=== PATIENT | female | born 1995 | race Caucasian/White ===

== ENCOUNTER 2017-05-16 11:06 | Emergency (ER) | payer OTHER ==
[~2017-05-16] VITALS: Ht 160 cm; Wt 83.9 kg
[2017-05-16] MEDS ORDERED: NORCO 10-325 T1 EACH PO (12:15)
[2017-05-16] MEDS ORDERED: CLEOCIN HCL300 MG PO (12:15)
[2017-05-20] MEDS ORDERED: NORCO 7.5-3251 EACH PO (13:09)
[2017-05-20] MEDS ORDERED: BACTRIM DS TAB1 EACH PO (13:09)
== END 2017-05-16 12:33 | disposition home or self-care (01) ==
LOC: ED 11:06
DX: L02.31 Cutaneous abscess of buttock (principal)
CPT/HCPCS: 99283

== ENCOUNTER 2017-11-02 17:49 | Emergency (ER) | payer OTHER ==
[~2017-11-02] VITALS: Ht 160 cm; Wt 74.8 kg
[~2017-11-02 17:49] MED LIST: BACTRIM DS TAB1 EACH PO; CLEOCIN HCL300 MG PO; NORCO 10-325 T1 EACH PO; NORCO 7.5-3251 EACH PO
[2017-11-02] MEDS ORDERED: SUMATRIPTAN SUC50 MG PO (18:49)
[2017-11-02] MEDS ORDERED: ONDANSETRON ODT8 MG PO (18:49)
== END 2017-11-02 19:10 | disposition home or self-care (01) ==
LOC: ED 17:49
DX: G43.909 Migraine, unspecified, not intractable, without status migrainosus (principal)
CPT/HCPCS: 96372; 99283; J3030

== ENCOUNTER 2018-06-11 22:00 | Emergency (ER) | payer OTHER ==
[~2018-06-11] VITALS: Ht 160 cm; Wt 79.4 kg
[~2018-06-11 22:00] MED LIST changes: +ONDANSETRON ODT8 MG PO; +SUMATRIPTAN SUC50 MG PO
== END 2018-06-12 00:41 | disposition home or self-care (01) ==
LOC: ED 22:00
DX: S16.1XXA Strain of muscle, fascia and tendon at neck level, initial encounter (principal); S70.01XA Contusion of right hip, initial encounter; S00.83XA Contusion of other part of head, initial encounter; S00.511A Abrasion of lip, initial encounter; F17.200 Nicotine dependence, unspecified, uncomplicated; Y04.0XXA Assault by unarmed brawl or fight, initial encounter
CPT/HCPCS: 70450; 70486; 72125; 99284-25

== ENCOUNTER 2020-02-23 19:26 | Emergency (ER) | payer OTHER ==
[~2020-02-23] VITALS: Ht 160 cm; Wt 88.5 kg
[2020-02-23] MEDS ORDERED: ONDANSETRON ODT4 MG PO (22:16)
--- NOTE | 2020-02-24 06:58 | EKG ---
[facility] [address] [facility] [place], [place] [address] Signed Sinus rhythm with marked sinus arrhythmia Otherwise normal ECG No previous ECGs available Confirmed by BELLA BRUSH MD ([id number]) on 02/24/2020 6:58:08 AM Electronically Signed By: BELLA BRUSH MD 02/24/20 0658 PATIENT NAME: MONICA PERRIN LIAM Electrocardiogram DATE OF : [birth year] PHYSICIAN: BELLA BRUSH MD REPORT #: [id number] REPORT IS CONFIDENTIAL AND NOT TO BE RELEASED WITHOUT AUTHORIZATION
== END 2020-02-23 23:27 | disposition home or self-care (01) ==
LOC: ED 19:26
DX: R07.9 Chest pain, unspecified (principal); R06.00 Dyspnea, unspecified; R11.2 Nausea with vomiting, unspecified
CPT/HCPCS: 71045; 80053; 81001; 83735; 84484; 84703; 85025; 93005; 93010; 96374; 96375; 99285-25; J1885; J2405; J7121

== ENCOUNTER 2021-11-04 09:09 | Emergency (ER) | payer OTHER ==
[~2021-11-04] VITALS: Ht 160 cm; Wt 79.4 kg
[~2021-11-04 09:09] MED LIST changes: +ONDANSETRON ODT4 MG PO
[2021-11-04] MEDS ORDERED: ONDANSETRON ODT8 MG PO (16:22)
== END 2021-11-04 16:38 | disposition home or self-care (01) ==
LOC: ED 09:09
DX: K52.9 Noninfective gastroenteritis and colitis, unspecified (principal)
CPT/HCPCS: 36415; 74177; 80053; 81001; 83690; 84703; 85025; 96361; 96376; 99284-25; J2405; J7030; Q9967

== ENCOUNTER 2022-01-13 07:23 | Emergency (ER) | payer OTHER ==
[~2022-01-13] VITALS: Ht 160 cm; Wt 79.9 kg
== END 2022-01-13 10:59 | disposition home or self-care (01) ==
LOC: ED 07:23
DX: M54.9 Dorsalgia, unspecified (principal); R10.9 Unspecified abdominal pain
CPT/HCPCS: 36415; 80053; 81003; 83690; 84703; 85025; 99284; A9270

== ENCOUNTER 2022-09-02 20:38 | Emergency (ER) | payer OTHER ==
[~2022-09-02] VITALS: Ht 160 cm; Wt 74.5 kg
--- OUTSIDE RECORDS SUMMARY | ~2022-09-02 | XMS | Continuity of Care Document ---
Demographics + + + | Address | [address] | | | [place] [address] | + + + | Preferred Language | Unknown | + + + | Marital Status | Never | + + + | Lutheran Affiliation | Unknown | + + + | Race | White | + + + | Ethnic Group | Not or | + + + Author + + + | Author | [facility] | + + + | Organization | [facility] | + + + | Address | [address] | | | [place] [address] | + + + | Phone | | + + + Care Team Providers + + + + | Care Table Saw Operator Name | Role | Phone | + + + + Unavailable | Unavailable | + + + + Unavailable | Unavailable | + + + + Unavailable | Unavailable | + + + + Allergies and Intolerances + + + + + + | date | description | facility | reaction | severity | + + + + + + | (no date) | Rash | [facility] | (no reaction) | (no severity) [facility] | | | + + + + + + | (no date) | Penicillin | [facility] | (no reaction) | (no severity) | [facility] | | | + + + + + + | (no date) | Penicillin | [facility] | (no reaction) | (no severity) | [facility] | | | + + + + + + | (no date) | No Known Drug | [facility] | (no reaction) | (no severity) | | | Allergies | | | | + + + + + + | (no date) | Penicillin | [facility] | (no reaction[facility] | (no severity) | [facility] | | | + + + + + + | (no date) | Penicillin | [facility] | (no reaction) | (no severity) | [facility] | | | + + + + + + Encounters No information. Functional Status No information. Immunizations No information. Medications + + + + | date | description | facility | + + + + | 2022-08-13 00:00 | METOCLOPRAMIDE HCL | [facility] | + + + + | 2017-11-02 00:00 | ONDANSETRON | [facility] | + + + + | 2021-11-04 00:00 | ONDANSETRON | [facility] | + + + + | 2017-11-02 00:00 | SUMATRIPTAN SUCCINATE | [facility] | + + + + | 2022-07-30 00:00 | AMOXICILLIN/POTASSIUM CLAV | [facility] | | | | | + + + + | 2022-08-13 00:00 | AMOXICILLIN/POTASSIUM CLAV | [facility] | | | | | + + + + | 2017-05-16 00:00 | CLINDAMYCIN HCL | [facility] | + + + + | 2022-07-30 00:00 | CLINDAMYCIN HCL | [facility] | + + + + | 2017-05-20 00:00 | | [facility] | | | SULFAMETHOXAZOLE/TRIMETHOPR | | | | IM DS | | + + + + | 2017-05-16 00:00 | HYDROCODONE/APAP | [facility] | | | (10-325MG) | | + + + + | 2017-05-20 00:00 | HYDROCODONE | [facility] | | | BIT/ACETAMINOPHEN | | + + + + | 2022-08-13 00:00 | PROMETHAZINE HCL | [facility] | + + + + Problems + + + + | date | description | facility | + + + + | 2017-05-16 00:00 | Abscess | [facility] | + + + + | 2017-05-16 00:00 | Abscess | [facility] | + + + + | 2018-06-12 00:00 | Contusion of face | [facility] | + + + + | 2018-06-12 00:00 | Contusion of face | [facility] | + + + + | 2018-06-12 00:00 | Strain of neck muscle | [facility] | + + + + | 2018-06-12 00:00 | Strain of neck muscle | [facility] | + + + + | 2018-06-12 00:00 | Contusion of right hip | [facility] | + + + + | 2018-06-12 00:00 | Contusion of right hip | [facility] | + + + + | 2020-02-23 00:00 | Dyspnea | [facility] | + + + + | 2020-02-23 00:00 | Dyspnea | [facility] | + + + + | 2020-02-23 00:00 | Chest pain | [facility] | + + + + | 2020-02-23 00:00 | Chest pain | [facility] | + + + + | 2020-02-23 00:00 | Vomiting | [facility] | + + + + | 2020-02-23 00:00 | Vomiting | [facility] | + + + + | 2021-05-09 00:00 | Patient left without being | [facility] | | | seen | | + + + + | 2021-05-09 00:00 | Patient left without being | [facility] | | | seen | | + + + + | 2021-11-04 00:00 | Gastroenteritis | [facility] | + + + + | 2021-11-04 00:00 | Gastroenteritis | [facility] | + + + + | 2022-01-13 00:00 | Musculoskeletal back pain | [facility] | + + + + | 2022-01-13 00:00 | Musculoskeletal back pain | [facility] | + + + + | 2022-07-30 00:00 | Allergic reaction due to | [facility] | | | antibacterial drug | | + + + + | 2022-07-30 06:28 | GEN SKIN ERUPTION DUE TO | [facility] | | | DRUGS AND MEDS TAKEN INTE | | + + + + | 2022-07-30 06:28 | Rash and other nonspecific | [facility] | | | skin eruption | | + + + + | 2022-07-30 06:28 | ADVERSE EFFECT OF | [facility] | | | PENICILLINS, INITIAL | | | | ENCOUNTER | | + + + + | 2022-07-30 06:28 | ADVERSE EFFECT OF | [facility] | | | CEPHALOSPOR/OTH BETA-LACTM | | | | ANTIB | | + + + + | 2022-08-13 00:00 | | [facility] | + + + + | 2022-08-13 10:00 | MILD HYPEREMESIS | [facility] | | | GRAVIDARUM | | + + + + | 2022-08-13 10:00 | NAUSEA WITH VOMITING, | [facility] | | | UNSPECIFIED | | + + + + | 2022-08-13 10:00 | LESS THAN 8 WEEKS | [facility] | | | GESTATION OF | | + + + + | 2022-08-13 10:00 | OTHER MANAGER POST (CURRENT) | [facility] | | | DRUG THERAPY | | + + + + | 2022-08-13 10:00 | ALLERGY STATUS TO | [facility] | | | PENICILLIN | | + + + + Procedures No information. Results/Labs +--------+--------+ +---------+--------+---------+ | test | date | facility | value | unit | notes | +--------+--------+ +---------+--------+---------+ + + | Result panel 1 | + + + + + + + + + | | 2021-11-04 | [facility] | YELLOW | (missing) | (missing) | | (unavailable | 10:59 [facility] | | | + + + + + + + + + | Result panel 2 | + + + + + +---------+ + + | | 2021-11-04 | [facility] | CLEAR | (missing) | (missing) | | (unavailable | 10:59 [facility] | | | | + + + +---------+ + + + + | Result panel 3 | + + + + + + + + + | | 2021-11-04 | [facility] | NEGATIVE | (missing) | (missing) | | (unavailable | 10:59 [facility] | | | + + + + + + + + + | Result panel 4 | + + + + + + + + + | | 2021-11-04 | [facility] | NEGATIVE | (missing) | (missing) | | (unavailable | 10:59 [facility] | | | + + + + + + + + + | Result panel 5 | + + + + + + + + + | | 2021-11-04 | [facility] | NEGATIVE | (missing) | (missing) | | (unavailable | 10:59 [facility] | | | + + + + + + + + + | Result panel 6 | + + + + + +---------+ + + | | 2021-11-04 | [facility] | 1.020 | (missing) | (missing) | | (unavailable | 10:59 [facility] | | | + + + +---------+ + + + + | Result panel 7 | + + + + + + + + + | | 2021-11-04 | [facility] | NEGATIVE | (missing) | (missing) | | (unavailable | 10:59 [facility] | | | + + + + + + + + + | Result panel 8 | + + + + + +-------+ + + | | 2021-11-04 | [facility] | 8.0 | (missing) | (missing) | | (unavailable | 10:59 [facility] | | | + + + +-------+ + + + + | Result panel 9 | + + + + + + + + + | | 2021-11-04 | [facility] | NEGATIVE | (missing) | (missing) | | (unavailable | 10:59 [facility] | | | + + + + + + + + + | Result panel 10 | + + + + + + + + + | | 2021-11-04 | [facility] | NORMAL | (missing) | (missing) | | (unavailable | 10:59 [facility] | | | + + + + + + + + + | Result panel 11 | + + + + + + + + + | | 2021-11-04 | [facility] | NEGATIVE | (missing) | (missing) | | (unavailable | 10:59 [facility] | | | + + + + + + + + + | Result panel 12 | + + + + + + + + + | | 2021-11-04 | [facility] | NEGATIVE | (missing) | (missing) | | (unavailable | 10:59 [facility] | | | + + + + + + + + + | Result panel 13 | + + + + + + + + + | | 2021-11-04 | [facility] | CLEAN CATCH | (missing) | (missing) | | (unavailable | 10:59 [facility] | | | + + + + + + + + + | Result panel 14 | + + + + + +--------+ + + | | 2021-11-04 | [facility] | 13.2 | (missing) | (missing) | | (unavailable | 11:15 [facility] | | | + + + +--------+ + + + + | Result panel 15 | + + + + + +--------+ + + | | 2021-11-04 | [facility] | 5.27 | (missing) | (missing) | | (unavailable | 11:15 [facility] | | | + + + +--------+ + + + + | Result panel 16 | + + + + + +--------+ + + | | 2021-11-04 | [facility] | 15.9 | (missing) | (missing) | | (unavailable | 11:15 [facility] | | | + + + +--------+ + + + + | Result panel 17 | + + + + + +--------+ + + | | 2021-11-04 | [facility] | 48.5 | (missing) | (missing) | | (unavailable | 11:15 [facility] | | | + + + +--------+ + + + + | Result panel 18 | + + + + + +--------+ + + | | 2021-11-04 | [facility] | 91.9 | (missing) | (missing) | | (unavailable | 11:15 [facility] | | | + + + +--------+ + + + + | Result panel 19 | + + + + + +--------+ + + | | 2021-11-04 | [facility] | 30.2 | (missing) | (missing) | | (unavailable | 11:15 [facility] | | | + + + +--------+ + + + + | Result panel 20 | + + + + + +--------+ + + | | 2021-11-04 | [facility] | 32.8 | (missing) | (missing) | | (unavailable | 11:15 [facility] | | | + + + +--------+ + + + + | Result panel 21 | + + + + + +--------+ + + | | 2021-11-04 | [facility] | 13.1 | (missing) | (missing) | | (unavailable | 11:15 [facility] | | | + + + +--------+ + + + + | Result panel 22 | + + + + + +-------+ + + | | 2021-11-04 | [facility] | 177 | (missing) | (missing) | | (unavailable | 11:15 [facility] | | | + + + +-------+ + + + + | Result panel 23 | + + + + + +--------+ + + | | 2021-11-04 | [facility] | 91.4 | (missing) | (missing) | | (unavailable | 11:15 [facility] | | | + + + +--------+ + + + + | Result panel 24 | + + + + + +-------+ + + | | 2021-11-04 | [facility] | 4.7 | (missing) | (missing) | | (unavailable | 11:15 [facility] | | | + + + +-------+ + + + + | Result panel 25 | + + + + + +-------+ + + | | 2021-11-04 | [facility] | 3.2 | (missing) | (missing) | | (unavailable | 11:15 [facility] | | | + + + +-------+ + + + + | Result panel 26 | + + + + + +-------+ + + | | 2021-11-04 | [facility] | 0.5 | (missing) | (missing) | | (unavailable | 11:15 [facility] | | | + + + +-------+ + + + + | Result panel 27 | + + + + + +-------+ + + | | 2021-11-04 | [facility] | 0.2 | (missing) | (missing) | | (unavailable | 11:15 [facility] | | | + + + +-------+ + + + + | Result panel 28 | + + + + + +-------+---------+ + | | 2021-11-04 | [facility] | 102 | mg/dL | (missing) | | (unavailable | 11:15 [facility] | | | + + + +-------+---------+ + + + | Result panel 29 | + + + + + +------+---------+ + | | 2021-11-04 | [facility] | 10 | mg/dL | (missing) | | (unavailable | 11:15 [facility] | | | + + + +------+---------+ + + + | Result panel 30 | + + + + + +--------+---------+ + | | 2021-11-04 | [facility] | 0.75 | mg/dL | (missing) | | (unavailable | 11:15 [facility] | | | + + + +--------+---------+ + + + | Result panel 31 | + + + + + +-------+ + + | | 2021-11-04 | [facility] | 113 | (missing) | (missing) | | (unavailable | 11:15 [facility] | | | + + + +-------+ + + + + | Result panel 32 | + + + + + +---------+ + + | | 2021-11-04 | [facility] | 13.33 | (missing) | (missing) | | (unavailable | 11:15 [facility] | | | + + + +---------+ + + + + | Result panel 33 | + + + + + +-------+ + + | | 2021-11-04 | [facility] | 136 | (missing) | (missing) | | (unavailable | 11:15 [facility] | | | + + + +-------+ + + + + | Result panel 34 | + + + + + +-------+ + + | | 2021-11-04 | [facility] | 3.6 | (missing) | (missing) | | (unavailable | 11:15 [facility] | | | + + + +-------+ + + + + | Result panel 35 | + + + + + +-------+ + + | | 2021-11-04 | [facility] | 102 | (missing) | (missing) | | (unavailable | 11:15 [facility] | | | + + + +-------+ + + + + | Result panel 36 | + + + + + +------+ + + | | 2021-11-04 | [facility] | 27 | (missing) | (missing) | | (unavailable | 11:15 [facility] | | | + + + +------+ + + + + | Result panel 37 | + + + + + +--------+ + + | | 2021-11-04 | [facility] | 10.6 | (missing) | (missing) | | (unavailable | 11:15 [facility] | | | + + + +--------+ + + + + | Result panel 38 | + + + + + +-------+---------+ + | | 2021-11-04 | [facility] | 8.6 | mg/dL | (missing) | | (unavailable | 11:15 [facility] | | | + + + +-------+---------+ + + + | Result panel 39 | + + + + + +-------+ + + | | 2021-11-04 | [facility] | 7.6 | (missing) | (missing) | | (unavailable | 11:15 [facility] | | | + + + +-------+ + + + + | Result panel 40 | + + + + + +-------+ + + | | 2021-11-04 | [facility] | 3.8 | (missing) | (missing) | | (unavailable | 11:15 [facility] | | | + + + +-------+ + + + + | Result panel 41 | + + + + + +-------+ + + | | 2021-11-04 | [facility] | 3.8 | (missing) | (missing) | | (unavailable | 11:15 [facility] | | | + + + +-------+ + + + + | Result panel 42 | + + + + + +--------+ + + | | 2021-11-04 | [facility] | 1.00 | (missing) | (missing) | | (unavailable | 11:15 [facility] | | | + + + +--------+ + + + + | Result panel 43 | + + + + + +-------+ + + | | 2021-11-04 | [facility] | 1.5 | (missing) | (missing) | | (unavailable | 11:15 [facility] | | | | + + + +-------+ + + + + | Result panel 44 | + + + + + +------+ + + | | 2021-11-04 | [facility] | 11 | (missing) | (missing) | | (unavailable | 11:15 [facility] | | | + + + +------+ + + + + | Result panel 45 | + + + + + +------+ + + | | 2021-11-04 | [facility] | 15 | (missing) | (missing) | | (unavailable | 11:15 [facility] | | | + + + +------+ + + + + | Result panel 46 | + + + + + +------+ + + | | 2021-11-04 | [facility] | 53 | (missing) | (missing) | | (unavailable | 11:15 [facility] | | | + + + +------+ + + + + | Result panel 47 | + + + + + +------+ + + | | 2021-11-04 | [facility] | 87 | (missing) | (missing) | | (unavailable | 11:15 [facility] | | | + + + +------+ + + + + | Result panel 48 | + + + + + + + + + | | 2021-11-04 | [facility] | NEGATIVE | (missing) | (missing) | | (unavailable | 11:15 [facility] | | | + + + + + + + + + | Result panel 49 | + + + + + + + + + | | 2022-01-13 | [facility] | YELLOW | (missing) | (missing) | | (unavailable | 07:30 [facility] | | | + + + + + + + + + | Result panel 50 | + + + + + +---------+ + + | | 2022-01-13 | [facility] | CLEAR | (missing) | (missing) | | (unavailable | 07:30 [facility] | | | + + + +---------+ + + + + | Result panel 51 | + + + + + + + + + | | 2022-01-13 | [facility] | NEGATIVE | (missing) | (missing) | | (unavailable | 07:30 [facility] | | | + + + + + + + + + | Result panel 52 | + + + + + + + + + | | 2022-01-13 | [facility] | NEGATIVE | (missing) | (missing) | | (unavailable | 07:30 [facility] | | | + + + + + + + + + | Result panel 53 | + + + + + + + + + | | 2022-01-13 | [facility] | NEGATIVE | (missing) | (missing) | | (unavailable | 07:30 [facility] | | | + + + + + + + + + | Result panel 54 | + + + + + +---------+ + + | | 2022-01-13 | [facility] | 1.020 | (missing) | (missing) | | (unavailable | 07:30 [facility] | | | + + + +---------+ + + + + | Result panel 55 | + + + + + + + + + | | 2022-01-13 | [facility] | NEGATIVE | (missing) | (missing) | | (unavailable | 07:30 [facility] | | | + + + + + + + + + | Result panel 56 | + + + + + +-------+ + + | | 2022-01-13 | [facility] | 7.0 | (missing) | (missing) | | (unavailable | 07:30 [facility] | | | + + + +-------+ + + + + | Result panel 57 | + + + + + + + + + | | 2022-01-13 | [facility] | NEGATIVE | (missing) | (missing) | | (unavailable | 07:30 [facility] | | | + + + + + + + + + | Result panel 58 | + + + + + + + + + | | 2022-01-13 | [facility] | NORMAL | (missing) | (missing) | | (unavailable | 07:30 [facility] | | | + + + + + + + + + | Result panel 59 | + + + + + + + + + | | 2022-01-13 | [facility] | NEGATIVE | (missing) | (missing) | | (unavailable | 07:30 [facility] | | | + + + + + + + + + | Result panel 60 | + + + + + + + + + | | 2022-01-13 | [facility] | NEGATIVE | (missing) | (missing) | | (unavailable | 07:30 [facility] | | | + + + + + + + + + | Result panel 61 | + + + + + + + + + | | 2022-01-13 | [facility] | NEGATIVE | (missing) | (missing) | | (unavailable | 07:30 [facility] | | | + + + + + + + + + | Result panel 62 | + + + + + +--------+ + + | | 2022-01-13 | [facility] | 90.5 | (missing) | (missing) | | (unavailable | 07:38 [facility] | | | + + + +--------+ + + + + | Result panel 63 | + + + + + +--------+ + + | | 2022-01-13 | [facility] | 30.3 | (missing) | (missing) | | (unavailable | 07:38 [facility] | | | + + + +--------+ + + + + | Result panel 64 | + + + + + +--------+ + + | | 2022-01-13 | [facility] | 33.5 | (missing) | (missing) | | (unavailable | 07:38 [facility] | | | + + + +--------+ + + + + | Result panel 65 | + + + + + +--------+ + + | | 2022-01-13 | [facility] | 12.9 | (missing) | (missing) | | (unavailable | 07:38 [facility] | | | + + + +--------+ + + + + | Result panel 66 | + + + + + +-------+ + + | | 2022-01-13 | [facility] | 198 | (missing) | (missing) | | (unavailable | 07:38 [facility] | | | + + + +-------+ + + + + | Result panel 67 | + + + + + +--------+ + + | | 2022-01-13 | [facility] | 72.3 | (missing) | (missing) | | (unavailable | 07:38 [facility] | | | + + + +--------+ + + + + | Result panel 68 | + + + + + +--------+ + + | | 2022-01-13 | [facility] | 19.3 | (missing) | (missing) | | (unavailable | 07:38 [facility] | | | + + + +--------+ + + + + | Result panel 69 | + + + + + +-------+ + + | | 2022-01-13 | [facility] | 4.6 | (missing) | (missing) | | (unavailable | 07:38 [facility] | | | + + + +-------+ + + + + | Result panel 70 | + + + + + +-------+ + + | | 2022-01-13 | [facility] | 3.4 | (missing) | (missing) | | (unavailable | 07:38 [facility] | | | + + + +-------+ + + + + | Result panel 71 | + + + + + +-------+ + + | | 2022-01-13 | [facility] | 0.4 | (missing) | (missing) | | (unavailable | 07:38 [facility] | | | + + + +-------+ + + + + | Result panel 72 | + + + + + +------+---------+ + | | 2022-01-13 | [facility] | 95 | mg/dL | (missing) | | (unavailable | 07:38 [facility] | | | + + + +------+---------+ + + + | Result panel 73 | + + + + + +------+---------+ + | | 2022-01-13 | [facility] | 14 | mg/dL | (missing) | | (unavailable | 07:38 [facility] | | | + + + +------+---------+ + + + | Result panel 74 | + + + + + +--------+---------+ + | | 2022-01-13 | [facility] | 0.82 | mg/dL | (missing) | | (unavailable | 07:38 [facility] | | | + + + +--------+---------+ + + + | Result panel 75 | + + + + + +-------+ + + | | 2022-01-13 | [facility] | 101 | (missing) | (missing) | | (unavailable | 07:38 [facility] | | | + + + +-------+ + + + + | Result panel 76 | + + + + + +---------+ + + | | 2022-01-13 | [facility] | 17.07 | (missing) | (missing) | | (unavailable | 07:38 [facility] | | | + + + +---------+ + + + + | Result panel 77 | + + + + + +-------+ + + | | 2022-01-13 | [facility] | 136 | (missing) | (missing) | | (unavailable | 07:38 [facility] | | | + + + +-------+ + + + + | Result panel 78 | + + + + + +-------+ + + | | 2022-01-13 | [facility] | 4.0 | (missing) | (missing) | | (unavailable | 07:38 [facility] | | | + + + +-------+ + + + + | Result panel 79 | + + + + + +-------+ + + | | 2022-01-13 | [facility] | 104 | (missing) | (missing) | | (unavailable | 07:38 [facility] | | | + + + +-------+ + + + + | Result panel 80 | + + + + + +------+ + + | | 2022-01-13 | [facility] | 25 | (missing) | (missing) | | (unavailable | 07:38 [facility] | | | + + + +------+ + + + + | Result panel 81 | + + + + + +--------+ + + | | 2022-01-13 | [facility] | 11.0 | (missing) | (missing) | | (unavailable | 07:38 [facility] | | | + + + +--------+ + + + + | Result panel 82 | + + + + + +-------+---------+ + | | 2022-01-13 | [facility] | 8.8 | mg/dL | (missing) | | (unavailable | 07:38 [facility] | | | + + + +-------+---------+ + + + | Result panel 83 | + + + + + +-------+ + + | | 2022-01-13 | [facility] | 7.3 | (missing) | (missing) | | (unavailable | 07:38 [facility] | | | + + + +-------+ + + + + | Result panel 84 | + + + + + +-------+ + + | | 2022-01-13 | [facility] | 3.6 | (missing) | (missing) | | (unavailable | 07:38 [facility] | | | + + + +-------+ + + + + | Result panel 85 | + + + + + +-------+ + + | | 2022-01-13 | [facility] | 3.7 | (missing) | (missing) | | (unavailable | 07:38 [facility] | | | + + + +-------+ + + + + | Result panel 86 | + + + + + +--------+ + + | | 2022-01-13 | [facility] | 0.97 | (missing) | (missing) | | (unavailable | 07:38 [facility] | | | | + + + +--------+ + + + + | Result panel 87 | + + + + + +-------+ + + | | 2022-01-13 | [facility] | 0.4 | (missing) | (missing) | | (unavailable | 07:38 [facility] | | | | + + + +-------+ + + + + | Result panel 88 | + + + + + +-----+ + + | | 2022-01-13 | [facility] | 9 | (missing) | (missing) | | (unavailable | 07:38 [facility] | | | | + + + +-----+ + + + + | Result panel 89 | + + + + + +------+ + + | | 2022-01-13 | [facility] | 17 | (missing) | (missing) | | (unavailable | 07:38 [facility] | | | | + + + +------+ + + + + | Result panel 90 | + + + + + +------+ + + | | 2022-01-13 | [facility] | 54 | (missing) | (missing) | | (unavailable | 07:38 [facility] | | | | + + + +------+ + + + + | Result panel 91 | + + + + + +-------+ + + | | 2022-01-13 | [facility] | 130 | (missing) | (missing) | | (unavailable | 07:38 [facility] | | | | + + + +-------+ + + + + | Result panel 92 | + + + + + +-------+ + + | | 2022-01-13 | [facility] | 9.8 | (missing) | (missing) | | (unavailable | 07:38 [facility] | | | | + + + +-------+ + + + + | Result panel 93 | + + + + + +--------+ + + | | 2022-01-13 | [facility] | 5.02 | (missing) | (missing) | | (unavailable | 07:38 [facility] | | | | + + + +--------+ + + + + | Result panel 94 | + + + + + +--------+ + + | | 2022-01-13 | [facility] | 15.2 | (missing) | (missing) | | (unavailable | 07:38 [facility] | | | | + + + +--------+ + + + + | Result panel 95 | + + + + + +--------+ + + | | 2022-01-13 | [facility] | 45.5 | (missing) | (missing) | | (unavailable | 07:38 [facility] | | | | + + + +--------+ + + + + | Result panel 96 | + + + + + + + + + | | 2022-08-13 | [facility] | YELLOW | (missing) | (missing) | | (unavailable | 10:24:07 [facility] | | | | + + + + + + + + + | Result panel 97 | + + + + + +---------+ + + | | 2022-08-13 | [facility] | CLEAR | (missing) | (missing) | | (unavailable | 10:24:07 [facility] | | | | + + + +---------+ + + + + | Result panel 98 | + + + + + + + + + | | 2022-08-13 | [facility] | NEGATIVE | (missing) | (missing) | | (unavailable | 10:24:07 [facility] | | | | + + + + + + + + + | Result panel 99 | + + + + + + + + + | | 2022-08-13 | [facility] | NEGATIVE | (missing) | (missing) | | (unavailable | 10:24:07 [facility] | | | | + + + + + + + + + | Result panel 100 | + + + + + +---------+ + + | | 2022-08-13 | [facility] | SMALL | (missing) | (missing) | | (unavailable | 10:24:07 | [facility] | | | | | [facility] | | [facility] | | | | + + + +---------+ + + + + | Result panel 101 | + + + + + +---------+ + + | | 2022-08-13 | [facility] | 1.020 | (missing) | (missing) | | (unavailable | [facility] | | | + + + +---------+ + + + + | Result panel 102 | + + + + + + + + + | | 2022-08-13 | [facility] | NEGATIVE | (missing) | (missing) | | (unavailable | [facility] | | | | + + + + + + + + + | Result panel 103 | + + + + + +-------+ + + | | 2022-08-13 | [facility] | 7.0 | (missing) | (missing) | | (unavailable | [facility] | | | + + + +-------+ + + + + | Result panel 104 | + + + + + + + + + | | 2022-08-13 | [facility] | NEGATIVE | (missing) | (missing) | | (unavailable | [facility] | | | + + + + + + + + + | Result panel 105 | + + + + + +-------+ + + | | 2022-08-13 | [facility] | 1.0 | (missing) | (missing) | | (unavailable | [facility] | | | + + + +-------+ + + + + | Result panel 106 | + + + + + + + + + | | 2022-08-13 | [facility] | NEGATIVE | (missing) | (missing) | | (unavailable | [facility] | | | + + + + + + + + + | Result panel 107 | + + + + + + + + + | | 2022-08-13 | [facility] | NEGATIVE | (missing) | (missing) | | (unavailable | [facility] | | | + + + + + + + + + | Result panel 108 | + + + + + +--------+ + + | | 2022-08-13 | [facility] | 11.5 | (missing) | (missing) | | (unavailable | [facility] | | | + + + +--------+ + + + + | Result panel 109 | + + + + + +--------+ + + | | 2022-08-13 | [facility] | 62.4 | (missing) | (missing) | | (unavailable | [facility] | | | + + + +--------+ + + + + | Result panel 110 | + + + + + +--------+ + + | | 2022-08-13 | [facility] | 30.1 | (missing) | (missing) | | (unavailable | [facility] | | | + + + +--------+ + + + + | Result panel 111 | + + + + + +-------+ + + | | 2022-08-13 | [facility] | 6.5 | (missing) | (missing) | | (unavailable | [facility] | | | + + + +-------+ + + + + | Result panel 112 | + + + + + +-------+ + + | | 2022-08-13 | [facility] | 0.6 | (missing) | (missing) | | (unavailable | [facility] | | | + + + +-------+ + + + + | Result panel 113 | + + + + + +-------+ + + | | 2022-08-13 | [facility] | 0.4 | (missing) | (missing) | | (unavailable | [facility] | | | + + + +-------+ + + + + | Result panel 114 | + + + + + +--------+ + + | | 2022-08-13 | [facility] | 4.66 | (missing) | (missing) | | (unavailable | [facility] | | | + + + +--------+ + + + + | Result panel 115 | + + + + + +------+---------+ + | | 2022-08-13 | [facility] | 95 | mg/dL | (missing) | | (unavailable | [facility] | | | + + + +------+---------+ + + + | Result panel 116 | + + + + + +-----+---------+ + | | 2022-08-13 | [facility] | 3 | mg/dL | (missing) | | (unavailable | [facility] | | | + + + +-----+---------+ + + + | Result panel 117 | + + + + + +--------+---------+ + | | 2022-08-13 | [facility] | 0.68 | mg/dL | (missing) | | (unavailable | [facility] | | | + + + +--------+---------+ + + + | Result panel 118 | + + + + + +--------+ + + | | 2022-08-13 | [facility] | 14.4 | (missing) | (missing) | | (unavailable | [facility] | | | + + + +--------+ + + + + | Result panel 119 | + + + + + +-------+ + + | | 2022-08-13 | [facility] | 122 | (missing) | (missing) | | (unavailable | [facility] | | | + + + +-------+ + + + + | Result panel 120 | + + + + + +--------+ + + | | 2022-08-13 | [facility] | 4.41 | (missing) | (missing) | | (unavailable | [facility] | | + + + +--------+ + + + + | Result panel 121 | + + + + + +-------+ + + | | 2022-08-13 | [facility] | 138 | (missing) | (missing) | | (unavailable | [facility] | | + + + +-------+ + + + + | Result panel 122 | + + + + + +-------+ + + | | 2022-08-13 | [facility] | 3.5 | (missing) | (missing) | | (unavailable | [facility] | | | + + + +-------+ + + + + | Result panel 123 | + + + + + +-------+ + + | | 2022-08-13 | [facility] | 104 | (missing) | (missing) | | (unavailable | [facility] | | | + + + +-------+ + + + + | Result panel 124 | + + + + + +------+ + + | | 2022-08-13 | [facility] | 28 | (missing) | (missing) | | (unavailable | [facility] | | | + + + +------+ + + + + | Result panel 125 | + + + + + +-------+ + + | | 2022-08-13 | [facility] | 9.5 | (missing) | (missing) | | (unavailable | [facility] | | | + + + +-------+ + + + + | Result panel 126 | + + + + + +-------+---------+ + | | 2022-08-13 | [facility] | 8.9 | mg/dL | (missing) | | (unavailable | [facility] | | | + + + +-------+---------+ + + + | Result panel 127 | + + + + + +-------+ + + | | 2022-08-13 | [facility] | 7.1 | (missing) | (missing) | | (unavailable | [facility] | | | + + + +-------+ + + + + | Result panel 128 | + + + + + +-------+ + + | | 2022-08-13 | [facility] | 3.7 | (missing) | (missing) | | (unavailable | [facility] | | | + + + +-------+ + + + + | Result panel 129 | + + + + + +--------+ + + | | 2022-08-13 | [facility] | 42.3 | (missing) | (missing) | | (unavailable | [facility] | | | + + + +--------+ + + + + | Result panel 130 | + + + + + +-------+ + + | | 2022-08-13 | [facility] | 3.4 | (missing) | (missing) | | (unavailable | [facility] | | | + + + +-------+ + + + + | Result panel 131 | + + + + + +--------+ + + | | 2022-08-13 | [facility] | 1.09 | (missing) | (missing) | | (unavailable | [facility] | | | + + + +--------+ + + + + | Result panel 132 | + + + + + +-------+ + + | | 2022-08-13 | [facility] | 0.9 | (missing) | (missing) | | (unavailable | [facility] | | | + + + +-------+ + + + + | Result panel 133 | + + + + + +------+ + + | | 2022-08-13 | [facility] | 10 | (missing) | (missing) | | (unavailable | [facility] | | | + + + +------+ + + + + | Result panel 134 | + + + + + +------+ + + | | 2022-08-13 | [facility] | 12 | (missing) | (missing) | | (unavailable | [facility] | | | + + + +------+ + + + + | Result panel 135 | + + + + + +------+ + + | | 2022-08-13 | [facility] | 41 | (missing) | (missing) | | (unavailable | [facility] | | | + + + +------+ + + + + | Result panel 136 | + + + + + +------+ + + | | 2022-08-13 | [facility] | 56 | (missing) | (missing) | | (unavailable | [facility] | | | + + + +------+ + + + + | Result panel 137 | + + + + + + + + + | | 2022-08-13 | [facility] | POSITIVE | (missing) | (missing) | | (unavailable | [facility] | | | + + + + + + + + + | Result panel 138 | + + + + + +--------+ + + | | 2022-08-13 | [facility] | 90.7 | (missing) | (missing) | | (unavailable | [facility] | | | + + + +--------+ + + + + | Result panel 139 | + + + + + +--------+ + + | | 2022-08-13 | [facility] | 30.8 | (missing) | (missing) | | (unavailable | [facility] | | | + + + +--------+ + + + + | Result panel 140 | + + + + + +--------+ + + | | 2022-08-13 | [facility] | 34.0 | (missing) | (missing) | | (unavailable | [facility] | | | + + + +--------+ + + + + | Result panel 141 | + + + + + +--------+ + + | | 2022-08-13 | [facility] | 13.1 | (missing) | (missing) | | (unavailable | [facility] | | | + + + +--------+ + + + + | Result panel 142 | + + + + + +-------+ + + | | 2022-08-13 | [facility] | 170 | (missing) | (missing) | | (unavailable | [facility] | | | + + + +-------+ + + Social History No information. Vital Signs + + + +---------+ | date | measurement | value | units | + + + +---------+ | 2021-11-04 00:00 | BMI | 31.0 | kg/m2 | + + + +---------+ | 2021-11-04 00:00 | BP_diastolic | 67 | mmHg | + + + +---------+ | 2021-11-04 00:00 | BP_systolic | 103 | mmHg | + + + +---------+ | 2021-11-04 00:00 | heart_rate | 63 | /min | + + + +---------+ | 2021-11-04 00:00 | height_metric | 160.02 | cm | + + + +---------+ | 2021-11-04 00:00 | height_standard | 63 | in | + + + +---------+ | 2021-11-04 00:00 | o2_saturation | 100 | % | + + + +---------+ | 2021-11-04 00:00 | respiration_rate | 14 | /min | + + + +---------+ | 2021-11-04 00:00 | temperature_metric | 37.06 | C | | | | | | + + + +---------+ | 2021-11-04 00:00 | | 98.7 | F | | | temperature_standar | | | | | d | | | + + + +---------+ | 2021-11-04 00:00 | weight_metric | 79.38 | kg | + + + +---------+ | 2021-11-04 00:00 | weight_standard | 175 | lb | + + + +---------+ | 2022-01-13 00:00 | BMI | 31.2 | kg/m2 | + + + +---------+ | 2022-01-13 00:00 | BP_diastolic | 80 | mmHg | + + + +---------+ | 2022-01-13 00:00 | BP_systolic | 101 | mmHg | + + + +---------+ | 2022-01-13 00:00 | heart_rate | 89 | /min | + + + +---------+ | 2022-01-13 00:00 | height_metric | 160.02 | cm | + + + +---------+ | 2022-01-13 00:00 | height_standard | 63 | in | + + + +---------+ | 2022-01-13 00:00 | o2_saturation | 98 | % | + + + +---------+ | 2022-01-13 00:00 | respiration_rate | 17 | /min | + + + +---------+ | 2022-01-13 00:00 | temperature_metric | 36.72 | C | | | | | | + + + +---------+ | 2022-01-13 00:00 | | 98.1 | F | | | temperature_standar | | | | | d | | | + + + +---------+ | 2022-01-13 00:00 | weight_metric | 79.9 | kg | + + + +---------+ | 2022-01-13 00:00 | weight_standard | 176.15 | lb | + + + +---------+ | 2022-07-30 00:00 | BMI | 30.1 | kg/m2 | + + + +---------+ | 2022-07-30 00:00 | BP_diastolic | 68 | mmHg | + + + +---------+ | 2022-07-30 00:00 | BP_systolic | 121 | mmHg | + + + +---------+ | 2022-07-30 00:00 | heart_rate | 58 | /min | + + + +---------+ | 2022-07-30 00:00 | height_metric | 160.02 | cm | + + + +---------+ | 2022-07-30 00:00 | height_standard | 63 | in | + + + +---------+ | 2022-07-30 00:00 | o2_saturation | 98 | % | + + + +---------+ | 2022-07-30 00:00 | respiration_rate | 16 | /min | + + + +---------+ | 2022-07-30 00:00 | temperature_metric | 36.78 | C | | | | | | + + + +---------+ | 2022-07-30 00:00 | | 98.2 | F | | | temperature_standar | | | | | d | | | + + + +---------+ | 2022-07-30 00:00 | weight_metric | 77.11 | kg | + + + +---------+ | 2022-07-30 00:00 | weight_standard | 170 | lb | + + + +---------+ | 2022-08-13 00:00 | BMI | 30.3 | kg/m2 | + + + +---------+ | 2022-08-13 00:00 | BP_diastolic | 65 | mmHg | + + + +---------+ | 2022-08-13 00:00 | BP_systolic | 100 | mmHg | + + + +---------+ | 2022-08-13 00:00 | heart_rate | 50 | /min | + + + +---------+ | 2022-08-13 00:00 | height_metric | 160.02 | cm | + + + +---------+ | 2022-08-13 00:00 | height_standard | 63 | in | + + + +---------+ | 2022-08-13 00:00 | o2_saturation | 97 | % | + + + +---------+ | 2022-08-13 00:00 | respiration_rate | 18 | /min | + + + +---------+ | 2022-08-13 00:00 | temperature_metric | 36.39 | C | | | | | | + + + +---------+ | 2022-08-13 00:00 | | 97.5 | F | | | temperature_standar | | | | | d | | | + + + +---------+ | 2022-08-13 00:00 | weight_metric | 77.56 | kg | + + + +---------+ | 2022-08-13 00:00 | weight_standard | 170.99 | lb | + + + +---------+ | 2022-08-13 00:00 | weight_standard | 171 | lb | + + + +---------+"
--- OUTSIDE RECORDS SUMMARY | ~2022-09-02 | XMS | Continuity of Care Document ---
Demographics + + + | Address | [address] | | | [place] [address] | + + + | Preferred Language | Unknown | + + + | Marital Status | Never | + + + | Christian Affiliation | Unknown | + + + | Race | White | + + + | Ethnic Group | Not or | + + + Author + + + | Author | [facility] | + + + | Organization | [facility] | + + + | Address | [address] | | | [place] [address] | + + + | Phone | | + + + Care Team Providers + + + + | Care Range Ecologist Name | Role | Phone | + [...] | 2022-08-13 00:00 | METOCLOPRAMIDE HCL | [facility] | + + + + | 2017-11-02 00:00 | ONDANSETRON | [facility] | + + + + | 2021-11-04 00:00 | ONDANSETRON | [facility] | + + + + | 2017-11-02 00:00 | SUMATRIPTAN SUCCINATE | [facility] | + + + + | 2022-07-30 00:00 | AMOXICILLIN/POTASSIUM CLAV | [facility] | | | | | + + + + | 2022-08-13 00:00 | AMOXICILLIN/POTASSIUM CLAV | [facility] | | | | | + + + + | 2017-05-16 00:00 | CLINDAMYCIN HCL | [facility] | + + + + | 2022-07-30 00:00 | CLINDAMYCIN HCL | [facility] | + + + + | 2017-05-20 00:00 | | [facility] | | | SULFAMETHOXAZOLE/TRIMETHOPR | | | | IM DS | | + + + + | 2017-05-16 00:00 | HYDROCODONE/APAP | [facility] | | | (10-325MG) | | + + + + | 2017-05-20 00:00 | HYDROCODONE | [facility] | | | BIT/ACETAMINOPHEN | | + + + + | 2022-08-13 00:00 | PROMETHAZINE HCL | [facility] | + + + + Problems + + + + | date | description | facility | + + + + | 2017-05-16 00:00 | Abscess | [facility] | + + + + | 2017-05-16 00:00 | Abscess | [facility] | + + + + | 2018-06-12 00:00 | Contusion of face | [facility] | + + + + | 2018-06-12 00:00 | Contusion of face | [facility] | + + + + | 2018-06-12 00:00 | Strain of neck muscle | [facility] | + + + + | 2018-06-12 00:00 | Strain of neck muscle | [facility] | + + + + | 2018-06-12 00:00 | Contusion of right hip | [facility] | + + + + | 2018-06-12 00:00 | Contusion of right hip | [facility] | + + + + | 2020-02-23 00:00 | Dyspnea | [facility] | + + + + | 2020-02-23 00:00 | Dyspnea | [facility] | + + + + | 2020-02-23 00:00 | Chest pain | [facility] | + + + + | 2020-02-23 00:00 | Chest pain | [facility] | + + + + | 2020-02-23 00:00 | Vomiting | [facility] | + + + + | 2020-02-23 00:00 | Vomiting | [facility] | + + + + | 2021-05-09 00:00 | Patient left without being | [facility] | | | seen | | + + + + | 2021-05-09 00:00 | Patient left without being | [facility] | | | seen | | + + + + | 2021-11-04 00:00 | Gastroenteritis | [facility] | + + + + | 2021-11-04 00:00 | Gastroenteritis | [facility] | + + + + | 2022-01-13 00:00 | Musculoskeletal back pain | [facility] | + + + + | 2022-01-13 00:00 | Musculoskeletal back pain | [facility] | + + + + | 2022-07-30 00:00 | Allergic reaction due to | [facility] | | | antibacterial drug | | [...] + | 2022-08-13 00:00 | | [facility] | + + + + | 2022-08-13 [...] + + | 2022-08-13 10:00 | OTHER [employer] (CURRENT) | [facility] | | | DRUG [...] (missing) | | (unavailable | 07:38 | [facility] | | | | | ) | [...]
[~2022-09-02 20:38] MED LIST changes: +AMOX TR-K CLV1 EAC1 PO; +PROMETHAZINE HC25 M1 PO; +REGLAN10 MG PO
--- OUTSIDE RECORDS SUMMARY | 2022-09-02 20:40 | XMS ---
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 E.D. VISIT COUNT (12 MO.) [address] [facility] TOTAL 5 NOTE: Visits indicate total known visits. ED/UCC VISIT TRACKING (12 MO.) 09/02/2022 20:39 [facility] TYPE: Emergency COMPLAINT: - CRAMPING 9 WK 08/13/2022 10:00 [facility] TYPE: Emergency COMPLAINT: - VOMITING DIAGNOSES: - Allergy status to penicillin - Less than 8 weeks gestation of - Mild hyperemesis gravidarum - Nausea with vomiting, unspecified - Other skilled nursing (current) drug therapy 07/30/2022 06:28 [facility] TYPE: Emergency COMPLAINT: - SORE THROAT, SKIN PROBLEM DIAGNOSES: - Adverse effect of cephalosporins and other beta-lactam antibiotics, initial encounter - Adverse effect of penicillins, initial encounter - Generalized skin eruption due to drugs and medicaments taken internally - Rash and other nonspecific skin eruption 01/13/2022 07:23 [facility] TYPE: Emergency COMPLAINT: - R FLANK/SIDE PAIN DIAGNOSES: - Dorsalgia, unspecified - Unspecified abdominal pain 11/04/2021 09:10 [facility] TYPE: Emergency COMPLAINT: - ABD PAIN, NAUSEA, HEADACHE DIAGNOSES: - Lower abdominal pain, unspecified - Noninfective gastroenteritis and colitis, unspecified INPATIENT VISIT TRACKING (12 MO.) No inpatient visits to display in this time frame [email or web address]
[2022-09-03 00:48] VITALS: BP 103/70
== END 2022-09-03 00:48 | disposition home or self-care (01) ==
LOC: ED 20:38
DX: O99.891 Other specified diseases and conditions complicating pregnancy (principal); R10.2 Pelvic and perineal pain; Z3A.09 9 weeks gestation of pregnancy; Z88.0 Allergy status to penicillin
CPT/HCPCS: 36415; 76801; 80048; 81003; 84702; 85025; 86900; 86901

== ENCOUNTER 2023-03-30 07:05 | Inpatient (IN) | payer OTHER ==
[~2023-03-30] VITALS: Ht 160 cm; Wt 86.2 kg
[2023-03-30] MEDS ORDERED: MAGNESIUM HYDROXIDE/AL HYDROX 30 ML CUP PO PRN (07:30)
[2023-03-30] MEDS ORDERED: LIDOCAINE 2% VISCOUS 6 ML SYR TOP ONE ×2 (07:30)
[2023-03-30] MEDS ORDERED: CALCIUM CARBONATE 500 MG CHEW PO PRN (07:30)
[2023-03-30] MEDS ORDERED: OXYTOCIN/DEXTROSE 5% 20 UNITS/100 ML BAG IV SCH ×2 (07:30→09:00)
[2023-03-30 08:05] LABS: HEMATOCRIT 38.6 % (35.0-50.0); HEMOGLOBIN 13.1 g/dL (12.0-18.0); MCH 31.5 (27-36); MCHC 33.9 g/dl (30-36); MCV 92.7 fl (81-99); RBC 4.17 M/ul (4.3-5.7); RDW 12.8 (10.5-15.0)
[2023-03-30 09:20] LABS: ABO A; ANTIBODY SCREEN NEGATIVE; RH NEGATIVE
[2023-03-30 09:36] LABS: AMPHETAMINES, URINE NEGATIVE (NEGATIVE); BARBITURATES, URINE NEGATIVE (NEGATIVE); BENZODIAZEPINE, URINE NEGATIVE (NEGATIVE); BUPRENORPHINE, URINE NEGATIVE (NEGATIVE); CANNABINOID, URINE POSITIVE (NEGATIVE); COCAINE, URINE NEGATIVE (NEGATIVE); ECSTASY, URINE NEGATIVE (NEGATIVE); FENTANYL, URINE NEGATIVE (NEGATIVE); METHADONE, URINE NEGATIVE (NEGATIVE); OPIATES, URINE NEGATIVE (NEGATIVE); OXYCODONE, URINE NEGATIVE (NEGATIVE); PHENCYCLIDINE, URINE NEGATIVE (NEGATIVE)
[2023-03-30] MEDS ORDERED: LACTATED RINGER'S 500 ML IV PRN (16:15)
[2023-03-30] MEDS ORDERED: ROPIVACAINE 0.2% 200 ML BAG EPIDURAL SCH (16:15)
[2023-03-30] MEDS ORDERED: ePHEDrine sulfate 5 MG/ML SYRINGE IV PRN (16:15)
[2023-03-30] MEDS ORDERED: LACTATED RINGER'S 2,000 ML IV ONE (16:15)
[2023-03-30] MEDS ORDERED: AZITHROMYCIN/DEXTROSE 500 MG/250 ML BAG ONE (16:27)
[2023-03-30] MEDS ORDERED: CEFAZOLIN SODIUM 2 GM/20 ML SYR ONE (16:28)
[2023-03-30] MEDS ORDERED: SODIUM CHLORIDE 0.9% 1,000 ML XX SCH ×2 (16:30)
[2023-03-30] MEDS ORDERED: MORPHINE SULFATE 1 MG/ML VIAL ONE (16:30)
[2023-03-30] MEDS ORDERED: BUPIVACAINE 0.75% IN DEXTROSE 2 ML AMP ONE (16:31)
[2023-03-30] MEDS ORDERED: LIDOCAINE HCL 2% 5 ML SDV ONE (16:31)
[2023-03-30] MEDS ORDERED: fentaNYL citrate 100 MCG/2 ML VIAL ONE (16:31)
[2023-03-30] MEDS ORDERED: AZITHROMYCIN/DEXTROSE 500 MG/250 ML BAG IV STA (16:31)
[2023-03-30] MEDS ORDERED: ondansetron HCL 4 MG/2 ML VIAL ONE (16:33)
[2023-03-30] MEDS ORDERED: GENTAMICIN SULFATE 140 MG in DEXTROSE 5% 100 ML IV SCH (16:34)
[2023-03-30] MEDS ORDERED: CLINDAMYCIN PHOSPHATE/D5W 900 MG/50 ML BAG IV ONE (16:45)
[2023-03-30] MEDS ORDERED: LACTATED RINGER'S 1,000 ML IV PRN (16:45)
[2023-03-30] MEDS ORDERED: SOD+POT BICARB/CITRIC ACID 2 EA TABLET.EFF PO ONE (16:45)
[2023-03-30] MEDS ORDERED: SODIUM CHLORIDE 0.9% 20 ML IV ONE ×2 (16:47→16:53)
[2023-03-30] MEDS ORDERED: PHENYLEPHRINE HCL 10 MG/ML VIAL ONE (16:47)
[2023-03-30] MEDS ORDERED: dexmedeTOMIDine HCl 200 MCG/2 ML VIAL ONE (16:52)
[2023-03-30] MEDS ORDERED: Ropivacaine HCl 0.5% 30 ML VIAL ONE (16:53)
[2023-03-30] MEDS ORDERED: DEXAMETHASONE SOD PHOS 4 MG/ML VIAL ONE (16:53)
[2023-03-30] MEDS ORDERED: OXYTOCIN 10 UNITS/ML VIAL ONE (17:13)
[2023-03-30] MEDS ORDERED: HYDROmorphone HCL 1 MG/ML SYR IV PRN (17:30)
[2023-03-30] MEDS ORDERED: KETOROLAC TROMETHAMINE 30 MG/ML VIAL IV PRN (17:30)
[2023-03-30] MEDS ORDERED: NALOXONE HCL 0.4 MG SYR IV PRN (17:30)
[2023-03-30] MEDS ORDERED: diphenhydrAMINE HCL 50 MG/ML VIAL IV PRN (17:30)
[2023-03-30] MEDS ORDERED: ondansetron HCL 4 MG/2 ML VIAL IV PRN (17:30)
[2023-03-30] MEDS ORDERED: PROCHLORPERAZINE EDISYLATE 10 MG/2 ML VIAL IV PRN (17:30)
[2023-03-30] MEDS ORDERED: OXYCODONE/APAP 5/325 TAB PO PRN (17:45)
[2023-03-30] MEDS ORDERED: OXYCODONE HCL 5 MG TAB PO PRN (17:45)
[2023-03-30] MEDS ORDERED: PROMETHAZINE HCL 25 MG TAB PO PRN (17:45)
[2023-03-30] MEDS ORDERED: METOCLOPRAMIDE HCL 10 MG/2 ML SDV IV PRN (17:45)
[2023-03-30] MEDS ORDERED: bisacodyL 10 MG SUPP PR PRN (17:45)
[2023-03-30] MEDS ORDERED: HYDROCODONE/ACETA 5/325 TAB PO PRN (17:45)
[2023-03-30] MEDS ORDERED: OXYTOCIN/0.9 % SODIUM CHLORIDE 500 ML IV SCH (17:45)
[2023-03-30] MEDS ORDERED: PROMETHAZINE HCL 25 MG SUPP PR PRN (17:45)
[2023-03-30] MEDS ORDERED: LACTATED RINGER'S 1,000 ML IV SCH (17:48)
--- NOTE | 2023-03-30 19:19 | NUR ---
03/30/231918 Shea Masters 1751- PT ARRIVES TO [facility] ROOM VIA BED FROM [facility] OR. PT IS SHAKING BUT IN NO PAIN AT THIS TIME, WARM BLANKETS IN PLACE. PT REPORTS NO PAIN OR NAUSEA AT THIS TIME. [place]KE[place] IN PLACE DRAINING TO GRAVITY, SCD'S IN PLACE AND ACTIVE. IV SITE ON LFT HAND WNL, FLUID INFUSING DIRECTED. PT IS SUPINE D/T SPINAL RECOVERY, PT REPORTS SHE IS COMFORTABLE AT THIS TIME. PT ON RA, O2 SATS >90% VIA PULSE OX. RESPIRATIONS EVEN AND UNLABORED. FUNDAL CHECK PERFORMED WITH DONOVAN Cobos RN FOLLOWING BEHIND FOR VERIFICATION. FAMILY AT BEDSIDE. 1757- PT CONTINUES TO REPORT NO NAUSEA, DIZZINESS, SOB, OR PAIN. PT UNABLE TO WIGGLE TOES. PT ASKS FOR HOB TO BE ELEVATED AND SIPS OF WATER, EDUCATED PT ABOUT IMPORTANCE OF SLOWLY INCREASING HOB AFTER SPINAL, PT STATES VERBAL UNDERSTANDING AT THIS TIME. 1824- BP CONTINUES TO BE SOFT AND READJUSTED ON ARM D/T LOW READING. PER PT BP IS USUALLY SOFT AROUND "100'S" AT BASELINE. PT REMAINS UNSYMPTOMATIC, BLEEDING W/FUNDAL CHECKS IS MINIMAL AND OPERATIVE DRESSING IS C/D/I. 1830- DONOVAN SOSA IN ROOM W/BABY TO CHEST AT THIS TIME. HOB SLIGHTLY ELEVATED FROM SUPINE POSITION TO 15 DEGREES D/T BP STABLE IN 90'S. PT CONTINUES TO REPORT NO NEW SYMPTOMS, PT RESPIRATIONS EVEN AND UNLABORED, O2 >90% VIA CONT. PULSE OX. 1839- MCKEON CATHETER EMPTIED, CONTINUES TO DRAIN TO GRAVITY. SPINAL IS UNCHANGED FROM FIRST ASSESSMENT. PT IS NOW ABLE TO WIGGLE TOES W/OUT DIFFICULTY. BABY REMAINS TO CHEST AND MORE FAMILY MEMBERS NOW IN ROOM, DONOVAN SOSA IN ROOM ASSISTING W/LATCHING AT THIS TIME. SCD'S REMAIN IN PLACE. 1844- REPORT GIVEN TO DONOVAN [facility] IAN. ALL QUESTIONS ANSWERED AND SURGICAL SITES VISUALIZED AT THIS TIME. NO FURTHER QUESTIONS OR NEEDS PER RN OR PT. PT REMAINS PAIN FREE AND REPORTS NO NEW SYMPTOMS. DONOVAN SOSA IN ROOM W/PT AND BABY.
[2023-03-30] MEDS ORDERED: KETOROLAC TROMETHAMINE 30 MG/ML VIAL IV SCH (20:00)
[2023-03-30] MEDS ORDERED: SIMETHICONE 125 MG TABLET CHEWABLE PO SCH (21:00)
[2023-03-30] MEDS ORDERED: SENNOSIDES/DOCUSATE 1 EA TAB PO SCH (21:00)
[2023-03-31] MEDS ORDERED: ENOXAPARIN SODIUM 40 MG/0.4 ML SYR SUB-Q SCH (03:00)
[2023-03-31] MEDS ORDERED: LACTATED RINGER'S 1,000 ML IV SCH (05:00)
[2023-03-31 05:35] LABS: HEMATOCRIT 34.1 % (35.0-50.0); HEMOGLOBIN 11.5 g/dL (12.0-18.0); MCH 31.4 (27-36); MCHC 33.6 g/dl (30-36); MCV 93.3 fl (81-99); RBC 3.66 M/ul (4.3-5.7); RDW 13.1 (10.5-15.0)
[2023-03-31 06:17] LABS: ABO A; ANTIBODY SCREEN NEGATIVE; RH NEGATIVE
[2023-03-31] MEDS ORDERED: PROCHLORPERAZINE EDISYLATE 10 MG/2 ML VIAL IV PRN (17:30)
[2023-03-31] MEDS ORDERED: ondansetron HCL 4 MG/2 ML VIAL IV PRN (17:30)
[2023-03-31] MEDS ORDERED: IBUPROFEN 600 MG TAB PO SCH (20:00)
[2023-04-02 14:24] LABS: RHIG STATUS NOT A CANDIDATE
== END 2023-04-01 12:20 | disposition home or self-care (01) | DRG 787 ==
LOC: FBC 07:05
PROVIDERS: ADMIT Obstetrics & Gynecology; ATTEND Obstetrics & Gynecology
PROC: 4A033R1 Measurement of Arterial Saturation, Peripheral, Percutaneous Approach (ICD-10-PCS; 2023-03-30)
PROC: 10D00Z1 Extraction of Products of Conception, Low, Open Approach (ICD-10-PCS; principal; 2023-03-30 16:50)
DX: O76 Abnormality in fetal heart rate and rhythm complicating labor and delivery (principal); O99.324 Drug use complicating childbirth; O77.0 Labor and delivery complicated by meconium in amniotic fluid; Z3A.39 39 weeks gestation of pregnancy; Z37.0 Single live birth; O69.1XX0 Labor and delivery complicated by cord around neck, with compression, not applicable or unspecified; F12.90 Cannabis use, unspecified, uncomplicated
CPT/HCPCS: 01961; 36415; 76942; 80307; 82803; 83030; 85027; 86850; 86900; 86901; A9270; J0456; J1100; J1580; J1650; J1885; J2001; J2274; J2371; J2405; J2590; J2790; J2795; J3010; J3490; J7121